=== PATIENT | female | born 1995 | race African-American/Black ===

== ENCOUNTER 2018-01-27 00:40 | Emergency (ER) | payer MEDICAID ==
[~2018-01-27] VITALS: Ht 157.5 cm; Wt 110.0 kg
[2018-01-27] MEDS ORDERED: LORAZEPAM 0.5MG TABLET PO ONE (03:45)
[2018-01-27 05:00] VITALS: BP 110/69
== END 2018-01-27 05:06 | disposition home or self-care (01) ==
LOC: ER 00:40
DX: F12.10 Cannabis abuse, uncomplicated (principal)
CPT/HCPCS: 81025; 99283